=== PATIENT | female | born 1990 | race Caucasian/White ===

== ENCOUNTER 2019-09-23 15:13 | Emergency (ER) | payer OTHER ==
[~2019-09-23] VITALS: Ht 162.6 cm; Wt 110.7 kg
== END 2019-09-23 19:33 | disposition home or self-care (01) ==
LOC: ED 15:13
DX: N83.201 Unspecified ovarian cyst, right side (principal); F17.200 Nicotine dependence, unspecified, uncomplicated
CPT/HCPCS: 74177; 80053; 81001; 83690; 84703; 85025; 96361; 99284-25; 99406; J1170; J2405; J7030; Q9967

== ENCOUNTER 2019-09-24 02:09 | Emergency (ER) | payer OTHER ==
[~2019-09-24] VITALS: Ht 162.6 cm; Wt 110.7 kg
--- OUTSIDE RECORDS SUMMARY | 2019-09-24 02:12 | XMS ---
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 Vu has no Care Guidelines for this patient. Christine V[facility] (12 MO.) [facility] T[facility] NOTE: Visits indicate total known visits. ED/C VISIT TRACKING (12 MO.) 09/24/2019 02:09 [facility] [place] TYPE: Emergency COMPLAINT: - NAUSEA/VOMITING/HEADACHE 09/23/2019 15:13 [facility] [place] TYPE: Emergency COMPLAINT: - LOWER BACK AND ABD PAIN, NON INJ INPATIENT VISIT TRACKING (12 MO.) No inpatient visits to display in this time frame [email or web address]
== END 2019-09-24 04:44 | disposition home or self-care (01) ==
LOC: ED 02:09
DX: R51 Headache (principal); N83.201 Unspecified ovarian cyst, right side; F17.200 Nicotine dependence, unspecified, uncomplicated
CPT/HCPCS: 70450; 80053; 81001; 83690; 84703; 85025; 96361; 96374; 96375; 99284-25; J1200; J2405; J2765; J7030

== ENCOUNTER 2021-03-09 05:56 | Emergency (ER) | payer OTHER ==
[~2021-03-09] VITALS: Ht 162.6 cm; Wt 110.7 kg
[2021-03-09] MEDS ORDERED: BUPROPION XL300 MG PO (06:36)
== END 2021-03-09 06:55 | disposition home or self-care (01) ==
LOC: ED 05:56
DX: U07.1 COVID-19 (principal); F17.200 Nicotine dependence, unspecified, uncomplicated
CPT/HCPCS: 99284; C9803; U0003

== ENCOUNTER 2021-11-13 23:09 | Emergency (ER) | payer OTHER ==
[~2021-11-13] VITALS: Ht 162.6 cm; Wt 84.2 kg
[~2021-11-13 23:09] MED LIST: BUPROPION XL300 MG PO
[2021-11-13] MEDS ORDERED: OMEPRAZOLE10 MG PO (23:25)
[2021-11-13] MEDS ORDERED: AMOX TR-K CLV1 EAC1 PO (23:31)
== END 2021-11-13 23:42 | disposition home or self-care (01) ==
LOC: ED 23:09
DX: S00.85XA Superficial foreign body of other part of head, initial encounter (principal); L08.9 Local infection of the skin and subcutaneous tissue, unspecified; W26.8XXA Contact with other sharp object(s), not elsewhere classified, initial encounter; Z87.891 Personal history of nicotine dependence; Z79.899 Other long term (current) drug therapy
CPT/HCPCS: 99283

== ENCOUNTER 2022-01-14 06:53 | Emergency (ER) | payer OTHER ==
[~2022-01-14] VITALS: Ht 162.6 cm; Wt 75.0 kg
[~2022-01-14 06:53] MED LIST changes: +AMOX TR-K CLV1 EAC1 PO; +OMEPRAZOLE10 MG PO
== END 2022-01-14 08:25 | disposition home or self-care (01) ==
LOC: ED 06:53
DX: S93.402A Sprain of unspecified ligament of left ankle, initial encounter (principal); X50.1XXA Overexertion from prolonged static or awkward postures, initial encounter; Z87.891 Personal history of nicotine dependence; Z79.899 Other long term (current) drug therapy
CPT/HCPCS: 73610; 80053; 81001; 83690; 84703; 85025; 87502; 99283-25; U0003

== ENCOUNTER 2023-07-14 12:51 | Emergency (ER) | payer SELFPAY ==
[~2023-07-14] VITALS: Ht 162.6 cm; Wt 81.6 kg
[2023-07-14 13:15] VITALS: BP 153/99
--- NOTE | 2023-07-14 19:18 | EKG ---
[facility] [address] [facility] [place], [place] [address] Signed Normal sinus rhythm Normal ECG No previous ECGs available Confirmed by GUY MARTINEZ MD ([id number]) on 07/14/2023 7:18:38 PM Electronically Signed By: GUY MARTINEZ 07/14/23 1918 PATIENT NAME: ASHANTIBURT SMALL Electrocardiogram DATE OF : 88 PHYSICIAN: GUY MARTINEZ REPORT #: [id number] REPORT IS CONFIDENTIAL AND NOT TO BE RELEASED WITHOUT AUTHORIZATION
== END 2023-07-14 13:15 | disposition left against medical advice (07) ==
LOC: ED 12:51
DX: Z53.21 Procedure and treatment not carried out due to patient leaving prior to being seen by health care provider (principal)
CPT/HCPCS: 93005; 93010

== ENCOUNTER 2024-04-18 12:57 | Emergency (ER) | payer OTHER ==
[~2024-04-18] VITALS: Ht 162.6 cm; Wt 73.8 kg
[~2024-04-18 12:57] MED LIST changes: +CLONIDINE HCL0.1 MG PO; +DILAUDID2 MG PO; +ONDANSETRON ODT8 MG PO; +PERCOCET 5-3251 EACH PO
[2024-04-18 13:19] LABS: HEMOGLOBIN 13.6 g/dL (12.0-18.0); MCH 28.8 (27-36); RBC 4.72 M/ul (4.3-5.7); RDW 13.1 (10.5-15.0)
[2024-04-18 13:21] LABS: BASOPHILS 0.4 % (0-2); EOSINOPHILS 1.1 % (0-6); LYMPHOCYTES 24.3 % (24-44); MCHC 33.1 g/dl (30-36); MCV 86.9 fl (81-99); MONOCYTES 5.2 % (0-12); PLATELET COUNT 310 K/uL (140-440)
[2024-04-18] MEDS ORDERED: ACETAMINOPHEN 500 MG TAB PO ONE (13:30)
[2024-04-18 13:35] LABS: ALBUMIN 4.1 g/dL (3.4-5.0); ALBUMIN/GLOBULIN RATIO 1.24 (1.1-2.4); ANION GAP 13.2 (7-21); BILIRUBIN, TOTAL 0.3 ng/dL (0.2-1.0); BUN/CREATININE RATIO 46.29 (6.0-28.6); CALCIUM 9.1 mg/dL (8.5-10.1); CREATININE, SERUM 0.54 mg/dL (0.55-1.02); POTASSIUM 4.2 mmol/L (3.5-5.1); PROTEIN, TOTAL 7.4 g/dL (6.4-8.2)
[2024-04-18 13:54] VITALS: BP 166/98
--- NOTE | 2024-04-18 22:10 | EKG ---
[facility] [address] [facility] [place] [address] Signed Normal sinus rhythm Normal ECG No previous ECGs available Confirmed by Jazmine Hughes MD () on 04/18/2024 10:10:36 PM Electronically Signed By: JAZMINE HUGHES MD 04/18/242209 PATIENT NAME: BURT BURRELL Electrocardiogram DATE OF : 88 PHYSICIAN: JAZMINE HUGHES MD REPORT #: [id number] REPORT IS CONFIDENTIAL AND NOT TO BE RELEASED WITHOUT AUTHORIZATION
== END 2024-04-18 14:01 ==
LOC: ED 12:57
PROVIDERS: Emergency Medicine
DX: F41.0 Panic disorder [episodic paroxysmal anxiety] (principal); F07.89 Other personality and behavioral disorders due to known physiological condition; Z87.891 Personal history of nicotine dependence; Z79.899 Other long term (current) drug therapy
CPT/HCPCS: 36415; 80053; 84484; 85025; 93005; 93010; 99285; A9270